=== PATIENT | male | born 1965 | race Caucasian/White ===

== ENCOUNTER → 2018-12-01 | Emergency (ER) | payer SELFPAY ==
[~2018-12-01] MED LIST: ACETAMINOPHEN 325 MG TABLET (FP) ONE
[2018-12-01 16:31] VITALS: BP 126/58; PULSE 85; TEMP 98.1; BMI 20.8
--- NOTE | 2018-12-01 16:31 | PDOC ---
Rapid Medical Evaluation Time Seen by Provider: 12/01/18 16:27 Medical Evaluation: 12/01/18 16:27 I have performed a brief in-person evaluation of this patient. The patient presents with a chief complaint of: Lower abdominal pain for 2 days , generalized malaise, no fever/chills, no NVD, no urinary symptoms. PMHx: HTN, Liver problem? I have ordered the following: UA, Ucx, CBC, CMP, type n screen, Pt/PTT The patient will proceed to the ED for further evaluation. 12/01/18 16:30 12/01/18 16:30 Discharge Disposition - Diagnosis Abdominal pain Qualifiers: Abdominal location: unspecified location Qualified Code(s): R10.9 - Unspecified abdominal pain - Referrals - Patient Instructions - Post Discharge Activity
[2018-12-01 17:04] LABS: BASO % 0.8 % (0-2.0); EOS % 4.5 % (0-4.5); HEMATOCRIT 37.6 % (35.4-49); HEMOGLOBIN 12.6 GM/dL (11.7-16.9); LYMPH % 24.3 % (8-40); MCH 32.1 pg (25.7-33.7); MCHC 33.7 g/dl (32.0-35.9); MEAN CELL VOLUME 95.4 fl (80-96); MEAN PLT VOLUME 7.8 fl (7.5-11.1); MONO % 8.8 % (3.8-10.2); NEUT % 61.6 % (42.8-82.8); PLATELET COUNT 300 K/MM3 (134-434); RBC 3.94 M/mm3 (4.00-5.60); RDW 14.3 % (11.9-15.9); WHITE BLOOD COUNT 10.1 K/mm3 (4.0-10.0)
[2018-12-01 17:24] LABS: INR 1.03 (0.83-1.09); PROTHROMBIN TIME (PATIENT) 12.2 SEC (9.7-13.0)
[2018-12-01 17:25] LABS: HYALINE CASTS 3 /lpf (0-8); PH,URINE 5.5 (5.0-8.0); URINE APPEARANCE CLEAR; URINE BACTERIA 1.7 /hpf (NEGATIVE); URINE BILIRUBIN 1+ (NEGATIVE); URINE COLOR DK YELLOW; URINE GLUCOSE (UA) NEGATIVE (NEGATIVE); URINE KETONE TRACE (NEGATIVE); URINE LEUK ESTERASE NEGATIVE (NEGATIVE); URINE NITRITE NEGATIVE (NEGATIVE); URINE PROTEIN TRACE (NEGATIVE); URINE RBC 3 /hpf (0-4); URINE WBC 2 /hpf (0-5)
[2018-12-01 17:35] LABS: ALBUMIN 3.6 g/dl (3.4-5.0); BILIRUBIN,TOTAL 0.6 mg/dL (0.2-1); BLOOD UREA NITROGEN 19.9 mg/dL (7-18); CALCIUM 9.5 mg/dL (8.5-10.1); POTASSIUM 4.3 mmol/L (3.5-5.1); TOT PROT 7.8 g/dl (6.4-8.2)
[2018-12-01 18:14] LABS: URINE CRYSTALS MODERATE /hpf
--- NOTE | 2018-12-01 19:47 | PDOC ---
History of Present Illness - General Chief Complaint: Pain, Acute Stated Complaint: PHYSICAL Time Seen by Provider: 12/01/18 16:27 - History of Present Illness Initial Comments: 12/01/18 19:43 53 y/o/m here for abdominal pain x2 days. He states the pain is in his lower abd , the pain is intermittent, sharp, 6/10, and does not radiate. His pain is better after having a BM. His last BM was in the ED after arrival. He was told by his PCP 4 months ago that he has a problem with his liver but he never followed up for it. His abd pain is not affected by eating food. He has not taken any medications for the pain. He denies any CP, dizziness, N/V/D, headache , cough, fever, or other symptoms. He states he wanted to come in today to get a physical checkup because he is worried about what his PCP told him about his liver. He states his PCP is located in the [place] but he does not recall his name. 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 (treated for an abscess once in the past) Past History - Past Medical History Allergies/Adverse Reactions: Allergies Allergy/AdvReac Type Severity Reaction Status Date / Time No Known Allergies Allergy Verified 12/01/18 16:31 COPD: No HTN: Yes - Suicide/Smoking/Psychosocial Hx Smoking History: Current every day smoker Number of Cigarettes Smoked Daily: 20 Information on smoking cessation initiated: No Hx Alcohol Use: No Drug/Substance Use Hx: Yes (SNORT HEROIN) Review of Systems - Review of Systems Able to Perform ROS?: Yes Constitutional: No: Chills, Fever HEENTM: No: Nose Congestion Respiratory: No: Cough, Shortness of Breath Cardiac (ROS): No: Chest Pain, Lightheadedness ABD/GI: Yes: Abdominal cramping. No: Constipated, Diarrhea, Nausea, Vomiting : No: Dysuria, Hematuria Musculoskeletal: No: Joint Pain Integumentary: No: Lesions, Rash Neurological: No: Headache, Numbness *Physical Exam - Vital Signs Last Vital Signs Temp Pulse Resp BP Pulse Ox 98.1 F 85 16 126/58 L 99 12/01/18 16:27 12/01/18 16:27 12/01/18 16:27 12/01/18 16:27 12/01/18 16:27 - Physical Exam General Appearance: Yes: Nourished, Appropriately Dressed HEENT: positive: EOMI. negative: Pale Conjunctivae Neck: positive: Supple Respiratory/Chest: positive: Lungs Clear, Normal Breath Sounds. negative: Respiratory Distress, Crackles, Rales, Rhonchi, Wheezing Cardiovascular: positive: Regular Rhythm, Regular Rate, S1, S2 Gastrointestinal/Abdominal: positive: Normal Bowel Sounds, Tender (RLQ and LLQ mild tenderness to palpation), Soft. negative: Distended, Guarding Musculoskeletal: negative: Vertebral Tenderness Extremity: positive: Normal Capillary Refill, Normal Range of Motion Integumentary: positive: Normal Color, Other (track jones noted on right forearm and left hand, no abscesses noted ) Neurologic: positive: Fully Oriented, Alert, Normal Mood/Affect, Motor Strength /5 ED Treatment Course - LABORATORY CBC & Chemistry Diagram: 12/01/18 16:53 12/01/18 16:53 - ADDITIONAL ORDERS Additional order review: Laboratory Results 12/01/18 12/01/18 12/01/18 16:53 16:53 16:53 PT with INR 12.20 INR 1.03 Sodium Potassium Chloride Carbon Dioxide Anion Gap BUN Creatinine Est GFR (CKD-EPI)AfAm Est GFR (CKD-EPI)NonAf Random Glucose Calcium Total Bilirubin AST ALT Alkaline Phosphatase Total Protein Albumin Lipase Urine Color Dk yellow Urine Appearance Clear Urine pH 5.5 Ur Specific [place] 1.032 Urine Protein Trace Urine Glucose (UA) Negative Urine Ketones Trace H Urine Blood 1+ H Urine Nitrite Negative Urine Bilirubin 1+ H Urine Urobilinogen 1.0 Ur Leukocyte Esterase Negative Urine WBC (Auto) 2 Urine RBC (Auto) 3 Urine Casts (Auto) 3 U Epithel Cells (Auto) 1.0 Urine Crystals (Auto) Moderate Urine Bacteria (Auto) 1.7 Blood Type O POSITIVE Antibody Screen Negative 12/01/18 16:53 PT with INR INR Sodium 138 Potassium 4.3 Chloride 104 Carbon Dioxide 27 Anion Gap 7 L BUN 19.9 H Creatinine 1.0 Est GFR (CKD-EPI)AfAm 99.85 Est GFR (CKD-EPI)NonAf 86.15 Random Glucose 97 Calcium 9.5 Total Bilirubin 0.6 AST 297 H ALT 390 H Alkaline Phosphatase 112 Total Protein 7.8 Albumin 3.6 Lipase 108 Urine Color Urine Appearance Urine pH Ur Specific [place] Urine Protein Urine Glucose (UA) Urine Ketones Urine Blood Urine Nitrite Urine Bilirubin Urine Urobilinogen Ur Leukocyte Esterase Urine WBC (Auto) Urine RBC (Auto) Urine Casts (Auto) U Epithel Cells (Auto) Urine Crystals (Auto) Urine Bacteria (Auto) Blood Type Antibody Screen 12/01/18 16:53 RBC 3.94 L MCV 95.4 MCHC 33.7 RDW 14.3 MPV 7.8 Neutrophils % 61.6 Lymphocytes % 24.3 Monocytes % 8.8 Eosinophils % 4.5 Basophils % 0.8 Medical Decision Making - Medical Decision Making 12/01/18 20:16 53 y/o/m here for abdominal pain x2 days. He states the pain is in his lower abd , the pain is intermittent, sharp, 6/10, and does not radiate. Patient states he is concerned because 4 months ago his PCP told him he had a liver problem but he never followed up. Patient had labs ordered by E. CBC grossly normal. CMP showed elevated AST/ ALT. Patient requesting HIV test. 12/01/18 21:32 Upon speaking with patient again it became apparent that patient only came here for a "physical exam and labwork" He wanted to leave urgently and just wanted the results of his labwork so he could complete a "form for transportation." Patient left before he could be given discharge paperwork. He left before anyone removed his IV. Unable to find patient outside ED. 12/01/18 21:52 Attempted to contact patient but patient not answering his phone number on file. Contacted patient's brother in law, listed as next of kin, he is unwilling to contact the patient. [facility] [place], as per the officer there is no [facility] [email or web address] (listed as patient's address) address. Likely patient gave wrong address. There is no IV line present on patient's bed or the floor around the bed. There is an IV line present in the trash next to patient's bed but unable to confirm if this was the patient's IV line. 12/01/18 22:01 [facility]. Advised by officer at [facility] that patient's address is likely [facility] as there is no [address] in the area. Spoke with officer in [facility] [place], [employer] aware. *DC/Admit/Observation/Transfer Diagnosis at time of Disposition: Abdominal pain Qualifiers: Abdominal location: unspecified location Qualified Code(s): R10.9 - Unspecified abdominal pain - Discharge Dispostion Disposition: HOME Condition at time of disposition: Good Decision to Admit order: No - Referrals - Patient Instructions Printed Discharge Instructions: DI for Abdominal Pain-Adult Additional Instructions: If you have any worsening symptoms or concerns return to the ED. Follow up with your primary care doctor in the next week. - Post Discharge Activity
--- NOTE | 2018-12-01 21:12 | PDOC ---
Attending Attestation - Resident Resident Name: GilJosephlito Rosenda - ED Attending Attestation I have performed the following: I have examined & evaluated the patient, The case was reviewed & discussed with the resident, I agree w/resident's findings & plan, Exceptions are as noted - HPI HPI: 12/01/18 21:11 this patient came to the emergency department to obtain his lab work to expedite his transportation papers.family said that week to get his lab work done at outside lab. 12/01/18 21:12 - Physicial Exam PE: 12/01/18 21:12 53-year-old male no acute distress. Head normocephalic/atraumatic. Neck is supple Lungs are clear to auscultation bilaterally CVS regular rate and rhythm S1, S2 abdomen exam was no guarding or rebound. No flank pain. Skin warm and dry, there are track jones appreciable in his right arm and left hand but no cellulitis or abscess neuro axox3,ambulatory,no gross focal neuro deficits - Medical Decision Making 12/01/18 21:14 he was given a copy of his labs. the HIV testing he requested is not yet complete but he wants to leave now because his ride is leaving.
== END | disposition home or self-care (01) ==
LOC: JER 16:23
DX: R10.9 Unspecified abdominal pain (principal); F17.210 Nicotine dependence, cigarettes, uncomplicated; I10 Essential (primary) hypertension
CPT/HCPCS: 36415; 80053; 81003; 83690; 85025; 85610; 86850; 86900; 86901; 87086; 87389; 99281-25